=== PATIENT | female | born 1970 | race Caucasian/White ===

== ENCOUNTER 2020-06-28 10:13 | Emergency (ER) | payer OTHER, SELFPAY ==
--- NOTE | ~2020-06-28 | XR_ITS ---
XR elbow RT min 3V DATE: 06/28/2020 10:51 INDICATION: Right elbow pain TECHNIQUE: 4 views COMPARISON: None FINDINGS: No fracture or dislocation or joint effusion. No periosteal reaction or bone destruction. IMPRESSION: Negative Reviewed, dictated and finalized at location B. MESSENGER IMPRESSION: Negative
--- NOTE | ~2020-06-28 | XR_ITS ---
XR shoulder RT min 2V DATE: 06/28/2020 10:51 INDICATION: Right shoulder pain TECHNIQUE: 4 views COMPARISON: None FINDINGS: Old healed right rib fracture deformities. No fracture or dislocation of the right shoulder. Normal alignment at the acromioclavicular and gleno humeral joints. No abnormal right shoulder soft tissue calcification. IMPRESSION: Old healed right rib fractures Negative right shoulder Reviewed, dictated and finalized at location B. [employer]
[2020-06-28 10:21] VITALS: BP 157/92; PULSE 89; RESP 18; TEMP 36.8; O2SAT 99
[2020-06-28] MEDS: IBUPROFEN 600 MG TABLET PO (10:27)
--- NOTE | 2020-06-28 11:14 | ED.GENADULT ---
HPI - General Adult General Chief complaint: Fall Stated complaint: fall, right arm injury Time Seen by Provider: 06/28/20 10:14 Source: patient Mode of arrival: ambulatory Limitations: no limitations History of Present Illness HPI narrative: Patient is a 49-year-old female who presents with right elbow right shoulder pain after slipping and catching herself today patient notes aching pain worse with activity and movement patient has not taken anything for pain denies other injuries or complaints and is resting in the room in no distress upon arrival patient is not uncomfortable appearing on arrival Related Data Home Medications Medication Instructions Recorded Confirmed No Home Medications 06/28/20 06/28/20 Allergies Allergy/AdvReac Type Severity Reaction Status Date / Time tramadol Allergy Intermediate ITCHING Verified 06/28/20 10:24 Review of Systems Review of Systems: All systems reviewed & are unremarkable except as noted in HPI and below PMFSH Social History Social History (Updated 06/28/20 @ 11:15 by Anderson Melendez PA-C) Smoking status: Current every day smoker Alcohol intake: never Exam Narrative: Exam Narrative: GENERAL: Well-appearing, well-nourished, and in no acute distress. HEAD: Normocephalic, atraumatic. EYES: PERRLA and EOMI. ENT: Nares clear, no rhinorrhea or epistaxis. Mucous membranes moist. CHEST: Clear to auscultation. No respiratory distress. No wheezes rales or rhonchi HEART: Regular rate and rhythm. No murmur heard. EXTREMITIES: Normal range of motion. No edema. Tenderness of the right shoulder and elbow no deformities noted SKIN: Warm, dry, no rash. NEURO: No focal deficits. Alert and oriented x3. Neurovascularly intact PSYCH: Normal mood and affect. Course Course Emergency Course: Patient in the room in no distress aware of case findings treatment plan and diagnosis agreeing to follow-up as directed Vital Signs Vital signs: Vital Signs Temperature 98.3 F 06/28/20 10:21 Pulse Rate 89 06/28/20 10:21 Respiratory Rate 18 06/28/20 10:21 Blood Pressure 157/92 H 06/28/20 10:21 Pulse Oximetry 99 06/28/20 10:21 Temperature 98.3 F 06/28/20 10:21 Pulse Rate 89 06/28/20 10:21 Respiratory Rate 18 06/28/20 10:21 Blood Pressure 157/92 H 06/28/20 10:21 Pulse Oximetry 99 06/28/20 10:21 Medical Decision Making MDM Narrative Medical decision making narrative: Patients injury or pain is consistent with musculoskeletal etiology. No signs of neurological or vascular compromise on exam. Compartments and tisues are soft without signs of compartment syndrome. Pain is felt appropriate for further evaluation on an outpatient basis. Vital Signs Vital Signs: Vital Signs Temperature 98.3 F 06/28/20 10:21 Pulse Rate 89 06/28/20 10:21 Respiratory Rate 18 06/28/20 10:21 Blood Pressure 157/92 H 06/28/20 10:21 Pulse Oximetry 99 06/28/20 10:21 Temperature 98.3 F 06/28/20 10:21 Pulse Rate 89 06/28/20 10:21 Respiratory Rate 18 06/28/20 10:21 Blood Pressure 157/92 H 06/28/20 10:21 Pulse Oximetry 99 06/28/20 10:21 Imaging Data Radiologist's impression: ITS Impressions Shoulder X-Ray 06/28/20 10:56 IMPRESSION: Old healed right rib fractures Negative right shoulder Elbow X-Ray 06/28/20 10:59 IMPRESSION: Negative Discharge Plan Discharge Clinical Impression: Injury of right upper arm Patient Disposition: Home, Self-Care Condition: Stable Instructions: Antibiotic Form, Contusion in Adults (ED) Additional Instructions: Follow-up with primary care in the next 7 days as needed Return if symptoms worsen or concerns Only take medications as directed Follow patient education sheet Prescriptions: No Action No Home Medications RF: 0 Follow-up/Referrals: Chucky Blancas MD [Primary Care Provider] - Stand Alone Forms: Work/School Release IP
== END 2020-06-28 11:28 | disposition home or self-care (01) ==
PROVIDERS: Emergency Provider Emergency Medicine; PCP Family Medicine
DX: S49.91XA Unspecified injury of right shoulder and upper arm, initial encounter (principal); F17.200 Nicotine dependence, unspecified, uncomplicated; W01.0XXA Fall on same level from slipping, tripping and stumbling without subsequent striking against object, initial encounter
CPT/HCPCS: 73030; 73080; 99284; A9270